=== PATIENT | female | born 1990 | race Asian ===

== ENCOUNTER 2020-03-03 19:59 | Emergency (ER) | payer OTHER ==
[~2020-03-03] VITALS: Ht 154.9 cm; Wt 49.1 kg
[2020-03-03] MEDS ORDERED: FEXO-23 PO (20:31)
[2020-03-03 20:40] VITALS: BP 121/82
[2020-03-03 21:40] LABS: INFLUENZA TYPE A NEGATIVE FOR TYPE A (NEGATIVE); INFLUENZA TYPE B NEGATIVE FOR TYPE B (NEGATIVE)
== END 2020-03-03 21:15 | disposition home or self-care (01) ==
LOC: EMS 19:59
DX: J06.9 Acute upper respiratory infection, unspecified (principal); Z20.828 Contact with and (suspected) exposure to other viral communicable diseases; Z88.2 Allergy status to sulfonamides; Z79.899 Other long term (current) drug therapy
CPT/HCPCS: 87635; 87804